=== PATIENT | female | born 1970 | race Caucasian/White ===

== ENCOUNTER 2017-11-24 09:44 | Observation (INO) ==
[2017-11-24] MEDS ORDERED: Chlorhexidine Gluconate 2% 1 Pack (2 Cloths) TOPICAL SCH (10:45)
[2017-11-24] MEDS ORDERED: Metoprolol Tartrate 25 MG Tablet PO SCH (10:45)
[2017-11-24] MEDS ORDERED: Sod Chloride 0.9% Inj 1,000 ML IV.SIG SCH (10:45)
[2017-11-24] MEDS ORDERED: Vancomycin Inj 1,000 MG in Sodium Chlor 0.9% Inj 250 ML IV.SIG SCH (11:00)
[2017-11-24] MEDS ORDERED: Sodium Chlor 0.9% Inj 500 ML IV.SIG SCH (11:00)
[2017-11-24] MEDS ORDERED: Lidocaine PF 1% Inj 5 ML Syringe INFILTRATN ONE (12:00)
[2017-11-24] MEDS ORDERED: Phenylephrine/NS 1000 MCG/10ML Syringe IV.PUSH ONE (12:00)
[2017-11-24] MEDS ORDERED: Propofol Inj 500 MG/50 ML Vial ONE (12:03)
[2017-11-24] MEDS ORDERED: fentaNYL Citrate Inj 250 MCG/5 ML Ampul ONE (12:03)
[2017-11-24] MEDS ORDERED: Hypromellose 0.3% Opth Gel 10 GM Bottle ONE (12:04)
[2017-11-24] MEDS ORDERED: Gelatin Size 100 Topical Foam ONE (13:24)
[2017-11-24] MEDS ORDERED: Thrombin Topical Soln 5,000 UNIT Vial TOPICAL ONE (13:24)
[2017-11-24] MEDS ORDERED: fentaNYL Citrate Inj 100 MCG/2 ML Ampul ONE (16:57)
[2017-11-24] MEDS ORDERED: Ketamine Inj 50 MG/5 ML Syringe IV.PUSH ONE (16:57)
[2017-11-24] MEDS ORDERED: Bisacodyl 10 MG Supp RECTAL PRN (17:07)
[2017-11-24] MEDS ORDERED: HYDROmorphone PF Inj 2 MG/ML Vial ONE ×2 (17:13→17:57)
--- NOTE | 2017-11-24 17:16 | P.OP ---
Preoperative Diagnosis: C5-6 cervical disk herniation Postoperative Diagnosis: C5-6 cervical disk herniation Date of procedure: 11/26/17 Procedure: C5-6 anterior cervical discectomy and arthroplasty using Mobi C Anesthesia: MELANI Surgeon: Jona Preston MD Inspector Rubber Stamp Die: Carolyn Boykin Pathology: none sent Operation and Findings: INDICATIONS FOR THE PROCEDURE Ms Baez is a 46 year-old who presented with intractable neck pain and a C6 cervical radiculopathy. She was found to have a disc herniation at C5-6, causing significant mass effect on the nerve root. She has failed multiple modalities of nonsurgical treatment and has a very poor quality of life and her symptoms were affecting her quality of life. An anterior cervical discectomy and arthroplasty were indicated. Given the patien's age and intraoperative findings, a fusion was not appropriated, with the risk of adjacent level degeneration, and placement of a Mobi C artificial disk was indicated. The [id number] details of the surgical procedure, indications, alternatives, risks and potential complications were fully discussed with the patient. The patient fully understood. All her questions were answered. No guarantees were given. She voiced requesting the procedure and signed informed consents. She was offered the alternative of delaying the procedure and continuing with nonsurgical management. DETAILS OF THE SURGICAL PROCEDURE SURGICAL APPROACH A skin incision was made along the middle cervical crease with a #10 blade. The dissection was carried out through the platysma exposing the sternocleidomastoid muscle. The cervical spine was approached following the fascial layers of the neck, just medial to the anterior border of the sternocleidomastoid and carotid sheath by a combination of sharp and dull dissection. The omohyoid muscle was identified and carefully dissected laterally and the deep cervical fascia was carefully opened. The longus colli muscles were retracted to each side of the midline. A marker was placed at the C5-6 disc space and a cross-table lateral x-ray performed with a C-arm. An AP xray was then obtained as well, and the midline of the disk space was defined. SURGICAL DECOMPRESSION In order to decompress the anterior surface of the spinal cord it was necessary to perform a microsurgical resection of the disk. At this point in the procedure the operating microscope was draped in the usual sterile fashion and brought to the field. The rest of the surgical procedure was performed using microdissection technique with the exception of the closure. Under the operative microscopic a self-retaining retractor was placed underneath the longus colli muscle. The annulus at C5-6 was incised with a #15 blade and microdiscectomy was then carefully carried out using angled curets and pituitary forceps. The patient had a large disk extrusion which was producing mass affect on the exiting nerve root. This was carefully dissected with a nerve hock and resected with a think foot plate 2 mm Kerrison under high magnification. The posterior longitudinal ligament was then elevated with an angled curet and incised with a 15 bladed knife. A careful resection of the posterior longitudinal ligament was carried out using a thin footplate 2 mm Kerrison. Extruded disk fragments causing mechanical compression were carefully dissected. The decompression was then carried out laterally, and a bilateral foraminotomy was performed with a 2 mm thin foot Kerrison. The epidural space was the systematically assessed with a nerve hook in search for disk fragments of scar tissue. An excellent decompression was achieved in both, the dural sac and bilateral exiting nerve roots. The incision was then irrigated with a large amount of antibiotic solution INTERBODY ARTHROPLASTY In order to avoid collapse of the disk space which would result in bilateral foraminal stenosis, and in order to maintain disk space height and function minimally development of adjacent level degeneration, it was necessary to place an interbody device. At this point of the procedure, gentle distraction was applied. The size of the interbody device was then assessed using a trial, and a cross table xray was done for confirmation of appropriate size and position of the device. Then the disk space was irrigated with antibiotic solution, and a 15mm by 6mm Mobi C artificial disk was carefully impacted into the disc space C5-6. An excellent position of the device was achieved. This was confirmed anatomically by feeling the space posterior to the implant and distance to the anterior surface of the dural sac. Radiological confirmation of the position was performed with a cross table AP and lateral X-ray views, performed with the C-arm. COMPLETION OF THE SURGICAL PROCEDURE Once that each interbody device was in an appropriate position, the distraction was discontinued. The position of the device as well as alignment of the spine were assessed anatomically by direct visualization, and radiologically by performing an AP and lateral X-ray of the cervical spine with the C-arm. The position of the implant was excellent. The incision was irrigated with several liters of antibiotic solution. Hemostasis was achieved with a bipolar. A 7 mm Ayden-Hurtado drain was left in the prevertebral space and externalized through a separate stab incision. The incision was then closed in layers. 3-0 Vicryl with interrupted sutures was used to close the platysma and subcutaneous tissue. The skin was closed with 4- 0 running subcuticular Vicryl and Dermabond was applied to the skin. The drain was secured with a 3-0 nylon. At the end of the procedure the sponge, needle and instrument counts were all correct. The estimated blood loss was less than 40-50 cc. No blood transfusion was given. No intraoperative complications occurred. The patient received prophylactic antibiotics. The patient was then extubated and transferred to the recovery room in stable condition.
--- NOTE | 2017-11-24 17:22 | XR ---
EXAM DATE: 11/24/2017 5:20 PM EDT AGE/SEX: 46 years / Female INDICATIONS: Placement of artificial disc C5,C7. CLINICAL DATA: This is the patient's initial encounter. Patient reports that signs and symptoms have been present for 1 day and indicates a pain score of Nonresponsive. MEDICAL/SURGICAL HISTORY: None. None. COMPARISON: No prior exams available for comparison. FINDINGS: 2 spot intraoperative fluoroscopic views of the cervical spine demonstrate artificial disc replacemen t hardware at C5-6. CONCLUSION: Status post artificial disc replacement at C5-6. Electronically signed by: Apolinar Wells MD 11/24/2017 5:21 PM EDT
[2017-11-24] MEDS: ceFAZolin Inj 2,000 MG in Sodium Chlor 0.9% Inj 100 ML IV.SIG SCH (21:50)
[2017-11-24] MEDS: Gabapentin 300 MG Capsule PO SCH (21:52)
[2017-11-24] MEDS: Senna/Docusate Sodium 8.6/50 MG Tablet PO SCH (21:53)
[2017-11-24] MEDS ORDERED: ceFAZolin 2 GM Premix Inj 2 GM/50 ML PIGGYBACK IV.SIG SCH (22:00)
[2017-11-25] MEDS: ceFAZolin Inj 2,000 MG in Sodium Chlor 0.9% Inj 100 ML IV.SIG SCH ×2 (05:04→14:07)
[2017-11-25 08:53] VITALS: O2SAT 94
[2017-11-25] MEDS: Senna/Docusate Sodium 8.6/50 MG Tablet PO SCH (09:18)
[2017-11-25] MEDS: Gabapentin 300 MG Capsule PO SCH ×2 (09:18→13:20)
--- NOTE | 2017-11-25 12:38 | P.DS ---
Date of admission: 11/24/17 17:07 Primary care physician: No Primary Care Physician Brief History from admission: Ms Baez is a 46 year-old who presented with intractable neck pain and a C6 cervical radiculopathy. She was found to have a disc herniation at C5-6, causing significant mass effect on the nerve root. She has failed multiple modalities of nonsurgical treatment and has a very poor quality of life and her symptoms were affecting her quality of life. An anterior cervical discectomy and arthroplasty were indicated. DS: Medications - Discharge Medications Prescriptions: hydrocodone-acetaminophen 1 tab PO Q4H PRN 3 Days #15 tab PRN Reason: Pain Scale 6 To 10 DS: Summary Hospital Course: Ms. Baez underwent a C5-6 anterior cervical discectomy and arthroplasty using Mobi C for C5-6 cervical disk herniation on 11/24/17. Her surgery went well without complications. She will be discharged home in stable conditions. - Time Spent with Patient Total time spent providing and/or coordinating discharge services: Less than 30 minutes - Quality: VTE Deep Vein Thrombosis/Pulmonary Embolism Present on Admission: No Exam Vital signs: Vital Signs 11/24/17 16:50 11/24/17 17:00 11/24/17 17:15 Temperature 96.5 F L Pulse Rate 100 H 96 H 109 H Respiratory Rate 14 15 18 Blood Pressure 122/84 122/83 119/82 Pulse Oximetry 100 100 100 11/24/17 17:30 11/24/17 17:45 11/24/17 18:00 Temperature Pulse Rate 93 H 96 H 103 H Respiratory Rate 14 12 18 Blood Pressure 125/82 120/70 120/74 Pulse Oximetry 95 97 93 L 11/24/17 18:45 11/24/17 20:00 11/25/17 00:00 Temperature 97.8 F 97.3 F L 97.3 F L Pulse Rate 99 H 106 H 104 H Respiratory Rate 17 18 20 Blood Pressure 102/66 108/72 119/77 Pulse Oximetry 93 L 96 97 11/25/17 04:00 11/25/17 08:00 Temperature 97.2 F L 97.3 F L Pulse Rate 99 H 99 H Respiratory Rate 20 18 Blood Pressure 118/73 114/64 Pulse Oximetry 99 94 L Intake & Output 11/24/17 11/25/17 11/25/17 18:59 06:59 18:59 Intake Total 1952 1540 / 1540 Output Total 375 / 375 3 / 3 Balance 1578 / 1578 1537 / 1537 Weight 66.1 kg 66.1 kg Intake: IV 123 / 123 1240 / 1240 NS + KCl 20 mEq Inj 1,000 ML @ 123 / 123 1000 / 1000 100 mls/hr IV.CONT .Q10H ZHEN Rx #:[id number] Ancef Inj 2,000 MG In NS Inj 240 / 240 100 ML @ 200 mls/hr IV.SIG Q8H ZHEN Rx#:[id number] Oral 30 / 30 300 / 300 Anesthesia Amount 1800 / 1800 Output: Urine 375 / 375 3 / 3 Other: Date of Last Bowel Movement 11/24/17 Weight On Admission 66.1 kg Results Procedures completed during hospitalization: C5-6 anterior cervical discectomy and arthroplasty using Mobi C - Impressions ITS Impressions Cervical Spine X-Ray 11/24/17 00:00 CONCLUSION: Status post artificial disc replacement at C5-6. Discharge Plan - Discharge Disposition Patient Disposition: Discharge Home - Discharge Condition Condition: Stable - Discharge Order Discharge Orders: Discharge Order (Routine); Ordered 11/25/17 Ordered By: Zhane Alvarez Neurosurgery Clear for Discharge (Routine); Ordered 11/25/17 Ordered By: Jona Preston - Physicians Team Primary Care Provider: Primary Care Suzette Salomon Attending Provider: Jona Preston - Rxs /Orders / Referrals /Forms Prescriptions: New gabapentin [Neurontin] 250 mg/5 mL Solution 600 mg PO TID Qty: 90 RF: 0 hydrocodone-acetaminophen 10-325 mg Tablet 1 tab PO Q4H PRN (Reason: Pain Scale 6 To 10) 3 Days Qty: 15 RF: 0 Continue cyclobenzaprine 10 mg Tablet 10 mg PO TID PRN (Reason: Muscle Pain) Qty: 90 ibuprofen 800 mg Tablet 800 mg PO TID PRN (Reason: Pain) Discontinued gabapentin 300 mg Capsule 300 mg PO TID Referrals: Primary Care Suzette Salomon [Primary Care Provider] - See Instructions - Discharge Instructions Patient Printed Instructions: Laminectomy (DC)
[2017-11-25 12:42] VITALS: BP 94/74; PULSE 110; TEMP 97.7
[2017-11-25 14:58] VITALS: RESP 18
== END 2017-11-25 16:07 | disposition home or self-care (01) ==
LOC: HSDC 09:44 → HSDI 09:44 → N06 19:10
PROVIDERS: ADMIT Neurological Surgery; ATTEND Neurological Surgery